=== PATIENT | male | born 2005 | race Caucasian/White ===

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

== ENCOUNTER 2024-10-02 17:55 | Emergency (ER) | payer OTHER, SELFPAY ==
[2024-10-02] VITALS (16 sets, daily range): BP systolic 110–139; BP diastolic 54–83; PULSE 88–152; RESP 18–34; TEMP 37.4–38.5; O2SAT 93–99; BMI 26.8
--- OUTSIDE RECORDS SUMMARY | 2024-10-02 17:57 | XMS_ITS | Clinical Summary ---
Author Organization [facility] Address [address] [place] [id number] Care Team Providers Care Laundry Bag Punch Operator Name Role Phone Unavailable Primary Care Provider Unavailabl e Source Comments Patient records contain information from all sites at [facility]. For routine questions regarding patient records, call [phone] during business hours, M-F 8:00 AM - 5:00 PM Central Time. Record requests for emergency care only can be directed to [phone] at any time.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 Gender Identity Not on file Sexual Orientation Not on file Plan of Treatment Health Maintenance Due Date Last Done Comments HIV Screening 2003 Hearing Screening during Well Child Visit 2003 Hepatitis C Screening 2003 TB Screening during Well Child Visit 2003 1 week Well Child Check-Up 2003 1 month Well Child Check-Up 2003 2 month Well Child Check-Up 2003 4 month Well Child Check-Up 01/03/2004 9 month Well Child Check-Up 06/04/2004 15 month Well Child Check-Up 12/02/2004 18 month Well Child Check-Up 03/04/2005 2 year Well Child Check-Up 09/01/2005 30 month Well Child Check-Up 03/04/2006 3 year Well Child Check-Up 09/01/2006 Well Child Check-Up Completed in Past Year 09/01/2006 5 year Well Child Check-Up 09/01/2008 6 year Well Child Check-Up 09/01/2009 7 year Well Child Check-Up 09/01/2010 8 year Well Child Check-Up 09/02/2011 10 year Well Child Check-Up 09/01/2013 12 year Well Child Check-Up 09/02/2015 13 year Well Child Check-Up 09/01/2016 12 year Well Child Check-Up 09/01/2017 13 year Well Child Check-Up 09/01/2018 HPV Vaccines (1 - Male 3-dose series) 10/02/2018 14 year Well Child Check-Up 09/29/2019 15 year Well Child Check-Up 09/01/2020 16 year Well Child Check-Up 09/01/2021 17 year Well Child Check-Up 09/01/2022 20 year Well Child Check-Up 09/02/2023 COVID-19 Vaccine ( - season) 2023 Influenza Vaccine (#1) 2024 7, 03/01/2007, 04/03/2006, Additional history exists Depression Screening (Annual PHQ-2) 05/01/2024 19 year Well Child Check-Up 09/01/2024 Well Child Check-Up (WCC) 09/01/2024 DTaP,Tdap,and Td Vaccines (7 - Td or Tdap) 03/18/2025 03/18/2015, 10/01/2008, 04/05/2005, Additional history exists Hepatitis B Vaccines Completed 04/08/2004, 04/08/2004, 02/02/2004, Additional history exists Pneumococcal vaccine (0-49 years) Aged Out 04/05/2005, 04/08/2004, 02/02/2004, Additional history exists No longer eligible based on patient's age to complete this topic IPV Vaccines Completed 10/01/2008, 12/2003, 04/08/2004, Additional history exists Meningococcal Vaccine Aged Out 03/18/2015 No thang leilani eligible based on patient's age to complete this topic Insurance
--- OUTSIDE RECORDS SUMMARY | 2024-10-02 17:57 | XMS_ITS | Patient Health Record ---
Author Organization [facility] Address [address] [facility] [address] [place] [address] Care Team Providers Care Didactic Program In Dietetics Director Name Role Phone Simone Purvis MD Primary Care Provider [phone] Destinee MORENO BUSINESS PROCESS ASSOCIATE, JANE Unavailable [phone] Perla HAAS, Concepcion Unavailable [phone] Reason For Referral No Information Problems Problem Type SNOMED Code ICD Code Onset Dates Problem Status W/U Status Risk Notes Problem Constipation (63691083) Constipation (K59.00) Active confirmed Problem Urinary urgency (R39.15) Active confirmed Problem Urinary frequency (583123655) Urinary frequency (R35.0) Active confirmed Plan Of Treatment No Information Insurance Providers Payer Name Payer Address Payer Phone Subscriber Number Group Number Insured Name Patient Relationship to Insured Coverage Start Date Coverage End Date [facility] [address] [address] [place] [address] [id number] Ry Urena Child - Insured has Financial Responsibility Medical (General) History Medical History History ICD Code Born at 38 weeks 9lbs Hematuria Urinary Urgency/Frequency Surgical History Surgery Date(Month/Year) Biopsy of infection on wrist Hospitalization History Reason Date(Month/Year) 5 days [facility] line for antibiotics for inf ection on wrist
--- OUTSIDE RECORDS SUMMARY | 2024-10-02 17:57 | XMS_ITS | Clinical Summary ---
Author Organization [facility] Address [address] [place] [address] Care Team Providers Care Marketing Planner Name Role Phone Mynor Cortez MD Primary Care Provider [phone] Allergies No known active allergies Medications azithromycin (Zithromax Z-Ish) 250 mg tabletIndicatio ns:Pneumonia of right lower lobe due to infectious organism Take 500 mg (2 tabs) by mouth on day 1, then 250 mg (1 tab) daily for days 2-5. 6 Tablet 5 Active cefuroxime axetil 500 mg tabletIndicatio ns:Pneumonia of right lower lobe due to infectious organism Take 1 Tablet (500 mg) by mouth two times daily for 7 days. 14 Tablet 5 10/08/19 25 Active albuterol HFA (ProAir HFA) 90 mcg/actuation inhalerIndicati ons:Pneumonia of right lower lobe due to infectious organism Inhale 1-2 Puffs by mouth every 6 hours if needed for Shortness of Breath 1st choice. 1 Each 5 Active benzonatate 100 mg capsuleIndicati ons:Pneumonia of right lower lobe due to infectious organism Take 1 Capsule (100 mg) by mouth 3 times daily if needed for Cough. 30 Capsule 5 Active clotrimazole-be tamethasone cream (LOTRISONE) 1-0.05 % creamIndication s:Perianal rash Apply topically to affected area(s) two times daily. 45 g 3 10/01/19 25 Discontinu ed(*Patien t states no longer taking) Active Problems Problem Noted Date Diagnosed Date Palpitations 12/03/2021 Use of energy drinks 12/03/2021 Encounters Date Type Department Care Team Description 10/02/2024 Nurse Triage [facility] [address] [facility] [place] [address] Tiny Garcia PA Cough 10/02/2024 Telephone [facility] [address] [facility] [place] [address] Tiny Garcia PA Letter For Work (Doctors note) 09/30/2024 10:15 AM CDT Ancillary Procedure [facility] [address] [place] [address] Arrived 09/30/2024 9:50 AM CDT Office Visit [facility] [address] [place] [address] Tiny Garcia PA Cough 09/30/2024 Travel from Last 3 Months Immunizations Immunization Administration Dates Next Due DTaP 04/05/2005 APoP-FvfI-HMV (Pediarix) 04/08/2004,02/02/2004,0 2003 DTaP-IPV (Kinrix) 10/01/2008 HIB PRP-OMP (PedvaxHIB) 04/05/2005,04/08,02/02/2004,12/10 Hepatitis A (Peds) 03/18/2015,12/05/2013 Influenza A (H1N1), Inactivated 02/26/2009 Influenza, IIV3 (Age 6-35 mos) 04/03/2006,2005 Influenza, IIV3 (Age >=3 years) 03/01/2007,04/03 MENINGOCOCCAL VACCINE 2 VIAL 2MO-55YO (MENVEO) 03/18/2015 MMR 10/01/2008,10/04/2004 Pneumococcal conj 7-Valent (Prevnar 7) 1 06/06/2004,04/08/2004,02/02/2004,12/10 Tdap 03/18/2015 Varicella Vaccine 10/01/2008,10/04/2004 Social History Tobacco Use Types Packs/Day Years Used Date Smoking Tobacco: Never Passive Smoke Exposure: Never Smokeless Tobacco: Never Tobacco Cessation:Counseling Given: Not Answered Comments:Mom states none. Alcohol Use Standard Drinks/Week Comments No 0 (1 standard drink = 0.6 oz pur e alcohol) PHQ-2 Answer Date Recorded PHQ-2 TOTAL SCORE 0 05/13/2022 Social Connections Answer Date Recorded Do you often feel lonely or isolated from those around you? 0 09/30/2024 Financial Resource Strain Answer Date R ecorded Difficulty of Paying Living Expenses 3 09/30/2024 Difficulty of Paying Living Expenses Not on file 09/30/2024 Food Insecurity Answer Date Recorded Do you worry your food will run out before you are able to buy more? 1 09/30/2024 Transportation Needs Answer Date Record ed Does lack of transportation keep you from medica l appointments? 1 09/30/2024 Does lack of transportation keep you from work, meetings or getting things that you need? 1 09/30/2024 Housing Stability Answer Date Recorded What is your housing situation today? 1 09/30/2024 Utilities Answer Date Recorded Do you have trouble paying f or utilities (for example, heat, electricity, water, phone)? 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 Gender Identity Not on file Sexual Orientation Not on file Obstetrics History Last Filed Vital Signs Vital Sign Reading Time Taken Comments Blood Pressure 143/78 09/30/2024 9:47 AM CDT Pulse 107 09/30/2024 9:47 AM CDT Temperature 37.5 C (99.5 F) 09/30/2024 9:47 AM CDT Respiratory Rate - - Oxygen Saturation 95% 09/30/2024 9:47 AM CDT Inhaled Oxygen Concentration - - Weight 83.6 kg (184 lb 6.4 oz) 09/30/2024 9:47 A M CDT Height 172.5 cm (5' 7.91) 05/13/2022 2:24 PM CS T Body Mass Index - - Plan of Treatment Upcoming Encounters Date Type Department Care Team (Late st Contact Info) Description 2024 4:10 PM CDT Office Visit [facility] [address] [place] [address] Tiny Garcia PA [address] [place] [address] Health Maintenance Due Date Last Done Comments HIV for age 15-65 10/02/2018 HPV series for age 9-26 (1 - Male 3-dose series) 10/02/2018 Hepatitis C screening for age 18-79 10/02/2021 BMI (ht and wt on same day) for age 18+ 05/13/2023 05/13/2022 Depression screening for age 12+ 05/13/2023 05/13/2022, 02/08/2017 COVID-19 vaccine series ( season) 2023 Influenza Vaccine (Season Ended) 2024 03/01/2007, 04/03/2006, 04/03/2006, Additional history exists Tetanus booster 03/18/2025 03/18/2015 Hepatitis B series for 19+ Completed 04/08, 02/02/2004, 2003 Pneumococcal series for age 6-49 Aged Out 04/05/2005, 04/08/2004, 02/02/2004, Additional history exists No longer eligible based on patient's age to complete this topic Meningococcal series for age 11-21 Aged Out 03/18/2015 No longer eligible based on patient's age to complete this topic Tdap Completed 03/18/2015 Procedures Procedure Name Priority Date/Time Associated Diagnosis Comments XR CHEST 2 VIEWS PA AND LATERAL STAT 09/30/2024 10:20 AM CDT SOB (shortness of breath) Influenza-like illness from Last 3 Months Results * XR CHEST 2 VIEWS PA AND LATERAL (09/30/2024 10:20 AM CDT) Anatomical Region Laterality Modality CHEST, THORAX, Lung, HEART Compu roselyn Radiography 09/30/2024 11:2 3 AM CDT Narrative 09/30/2024 11:23 AM CDT For Patients: As a result of the Cures Act, medical imaging exams and procedure reports are released immediately into your electronic medical record. You may view this report before your referring provider. If you have questions, please contact your health care provider. Indication: Shortness of breath Technique: Chest 2 views Comparison: None Findings/Impression: Cardiovascular and mediastinum: Heart size and vasculature are normal in caliber and appearance. Mediastinum is within normal limits. Lungs and pleural spaces: No pleural effusion or pneumothorax. Focal airspace consolidation within the right lower lobe consistent with pneumonia. Bones and soft tissues: No significant findings. Dictated by Scot Cunningham MD @ 09/30/2024 11:23:54 AM (Electronically Signed) Procedure Note Scot Cunningham MD - 09/30/2024 For Patients: As a result of the Cures Act, medical imagingexams and procedure reports are released immediately into your electronicmedical record. You may view this report before your referring provider.If you have questions, please contact your health care provider. Indication: Shortness of breath Technique: Chest 2 views Comparison: None Findings/Impression: Cardiovascular and mediastinum: Heart size and vasculature are normal incaliber and appearance. Mediastinum is within normal limits. Lungs and pleural spaces: No pleural effusion or pneumothorax. Focalairspace consolidation within the right lower lobe consistent withpneumonia. Bones and soft tissues: No significant findings. Dictated by Scot Cunningham MD @ 09/30/2024 11:23:54 AM (Electronically Signed) [facility] Final Result from Last 3 Months Insurance [facility] [employer] [facility] Care Teams Marketing Planner Relationship Specialty Start Date End Date Mynor Cortez MD [address] [place] [address] PCP - General Family Practice 11/11/21
[2024-10-02 18:18] LABS: Lactate Sepsis w/Reflex* 1.1 mmol/L (0.5-1.9)
--- NOTE | 2024-10-02 18:19 | CRLHL7_ITS ---
For Patients: As a result of the Century Cures Act, medical imaging exams and procedure reports are released immediately into your electronic medical record. You may view this report before your referring provider. If you have questions, please contact your health care provider. Indication: RECENT PNEUMONIA, NOW SEVERE HEADACHE Technique: CT of the head without contrast. Coronal and sagittal reformats. Bone and soft tissue windows. Comparison: No prior studies available for comparison at this institution. Findings: No acute intracranial hemorrhage or extra-axial collection. No evidence of acute cortical infarction. No mass effect or midline shift. Normal cerebral volume. The ventricles are normal in size, shape and contour. There is normal barnhart and white matter differentiation. The orbital contents are normal. No calvarial fractures. No lytic or sclerotic osseous lesions within the calvarium or skull base. Scalp and other imaged soft tissue structures are normal. Mastoid air cells are clear. Paranasal sinuses are well aerated. Leftward deviation of the nasal septum. Mild polypoid mucosal thickening in the left maxillary sinus. Impression: No acute intracranial abnormality. Please note that all CT scans at this facility use dose modulation, iterative reconstruction, and/or weight-based dosing when appropriate to reduce radiation dose to as low as reasonably achievable. Dictated by Manfred Carrington MD @ 10/02/2024 7:14:54 PM (Electronically Signed)
[2024-10-02] MEDS: ACETAMINOPHEN 500 MG TABLET 1000 MG PO (18:21)
[2024-10-02] MEDS: 0.9 % SODIUM CHLORIDE 1000 ml 1,000 ML IV (18:24)
[2024-10-02 18:30] LABS: Basophils Absolute Auto 0.02 K/uL (0.00-0.30); Basophils Percent Auto 0.2 % (0.0-3.0); Eosinophils Absolute Auto 0.02 K/uL (0.00-0.50); Eosinophils Percent Auto 0.2 % (0.0-7.0); Hematocrit* 45.8 % (37.0-53.0); Hemoglobin* 15.5 gm/dL (13.5-17.5); Immature Granulocytes Abs Auto 0.09 K/uL (0.00-0.30); Immature Granulocytes Pct Auto 0.8 %; Lymphocytes Percent Auto 12.7 % (20-44); Mean Corpuscular HGB Conc 34 gm/dL (32-36); Mean Corpuscular Hemoglobin 27 pg (26-34); Mean Corpuscular Volume 80 fL (80-100); Monocytes Percent Auto 4.5 % (0.0-11.0); Neutrophils Percent Auto 81.6 % (42.0-72.0); Platelet Count* 401 K/uL (140-440); RDW Coefficient of Variation % 11.7 % (11.5-15.5)
[2024-10-02 18:33] LABS: Slide Review Reflex No
[2024-10-02 18:45] LABS: Chloride* 104 mmol/L (96-114); Potassium* 3.9 mmol/L (3.6-5.1); Sodium* 140 mmol/L (135-149)
[2024-10-02 18:47] LABS: Blood Urea Nitrogen* 9 mg/dL (5-24); Creatinine* 0.9 mg/dL (0.5-1.5); Est. Creatinine Clearance* 125.61; Estimated Glomerular Filt Rate 125 ml/min
[2024-10-02 18:48] LABS: Anion Gap 11 mEq/L (7-15); Calcium* 9.4 mg/dL (8.4-10.6); Carbon Dioxide* 25 mmol/L (20-32); Glucose* 114 mg/dL (60-115)
[2024-10-02] MEDS: diphenhydrAMINE 50 MG/ML inj 25 MG IVP (18:54)
[2024-10-02] MEDS: METOCLOPRAMIDE HCL 5 MG/ML INJ 10 MG IVP (18:55)
[2024-10-02] MEDS: KETOROLAC 15 MG/ML inj IVP (18:55)
--- NOTE | 2024-10-02 19:13 | ED_ITS ---
HPI - Headache General Date Seen: 10/02/24 Chief Complaint: Headache/Migraine Stated Complaint: headache Time Seen by Provider: 10/02/24 17:58 Source: patient Mode of arrival: ambulatory Limitations: no limitations History of Present Illness HPI Narrative: Patient is a 19-year-old male presenting to the emergency department for headache. Use diagnosed with pneumonia 2 days ago and has been taking antibiotics for it since then. Today he states he woke up with a severe headache. States the headache did not directly wake him up from sleep but he noticed it when he woke up. He feels like the headache is getting worse. Tried some Advil at home without any improvement in his symptoms. States movement seems to make his headache worse and also admits to photophobia and phonophobia. Denies any history of migraines. Denies ever having headaches like this before. States it is the worst headache of his life. Denies weakness, numbness, chest pain, shortness of breath, abdominal pain, diarrhea, constipation, nausea. States any movement seems to make his headache worse. Has been having fevers at home. 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 No children. Living with his parents. Just graduated high school thinking about going to [employer] school. No alcohol tobacco or recreational drug use. What is your current living situation?: I presently have a place to live Problems where you live: no known problems In the past 12 months, utilities in danger of being shut off: no In past 12 months, lack of transportation kept you from medical appts, meetings, work, or getting things needed for daily living: no In the past 12 mos, have been you worried that your food would run out before you had money to buy more?: never true In the past 12 mos, the food you bought just didn't last and you didn't have money to buy more?: never true Smoking Status: Never smoker Do you use any of these nicotine containing products: None Second hand tobacco smoke exposure: No How often do you have a drink containing alcohol: never How often do you have six or more drinks on one occasion: Never AUDIT-C Alcohol total score: 0 Non-prescribed substance use: denies use How often does anyone, including family, friends and others, physically hurt you : never How often does anyone, including family, friends and others, insult or talk down to you: never How often does anyone, including family, friends and others, threaten you with harm: never How often does anyone, including family, friends and others, scream or curse at you: never service: No Exam Narrative: Exam Narrative: Const: Well-nourished, Well-developed, in moderate distress Eyes: PERRL, no conjunctival injection, and symmetrical lids HENT: Atraumatic external nose and ears. Moist mucous membranes. Neck: Symmetric, trachea midline, No thyromegaly. CVS: Tachycardic, No murmurs or gallops. Peripheral pulses 2+ and equal in all extremities RESP: Tachypneic. Clear to auscultation bilaterally. GI: Nontender/Nondistended, No rebound or guarding. MSK:Extremities w/o deformity, Normal Active ROM Skin: Warm, Dry. No rashes or lesions. Neuro: Normal Muscle tone, Cranial nerves 2-12 grossly intact, normal [id number], normal [id number], normal gait, normal strength 5/5 upper lower extremities bilaterally, normal sensation upper and lower extremities bilaterally, normal rapid alternating movements. Negative Brudzinski's sign but positive Kernig sign Psych: Awake, Alert, & Oriented x3. Appropriate mood and affect. Const: Vital Signs, click to edit/add: Vital Signs - 24 hr 10/02/24 17:58 10/02/24 18:32 10/02/24 18:33 Temperature 101.3 F H Pulse Rate 138 H 137 H Pulse Rate [Pulse Oximeter] 152 H Respiratory Rate 24 26 H 21 Blood Pressure 139/63 Blood Pressure [Ri ght Upper Arm] 110/60 Pulse Oximetry 96 99 98 Oxygen Delivery Me thod Room Air 10/02/24 18:53 10/02/24 19:00 10/02/24 19:02 Temperature Pulse Rate 126 H 125 H Pulse Rate [Pulse Oximeter] Respiratory Rate 29 H 34 H 33 H Blood Pressure 133/54 L Blood Pressure [Ri ght Upper Arm] Pulse Oximetry 95 96 Oxygen Delivery Me thod 10/02/24 19:03 10/02/24 19:15 10/02/24 19:29 Temperature 100.3 F H Pulse Rate 124 H 110 H Pulse Rate [Pulse Oximeter] Respiratory Rate 32 H 34 H Blood Pressure Blood Pressure [Ri ght Upper Arm] Pulse Oximetry 96 96 Oxygen Delivery Me thod 10/02/24 19:29 10/02/24 20:09 10/02/24 20:15 Temperature 100.3 F H Pulse Rate 121 H 121 H Pulse Rate [Pulse Oximeter] Respiratory Rate Blood Pressure Blood Pressure [Ri ght Upper Arm] Pulse Oximetry 97 95 Oxygen Delivery Me thod 10/02/24 21:09 Temperature 99.3 F Pulse Rate Pulse Rate [Pulse Oximeter] 103 H Respiratory Rate 20 Blood Pressure Blood Pressure [Ri ght Upper Arm] 121/75 Pulse Oximetry 95 Oxygen Delivery Me thod Room Air Course Vital Signs Vital signs: Initial Vital Signs Temperature 101.3 F H 10/02/24 17:58 Temperature Source Temporal Artery Scan 10/02/24 17:58 Pulse Rate 152 H 10/02/24 17:58 Respiratory Rate 24 10/02/24 17:58 Blood Pressure 110/60 10/02/24 17:58 Blood Pressure Mean 76 10/02/24 17:58 Blood Pressure Position Sitting 10/02/24 17:58 Pulse Oximetry 96 10/02/24 17:58 Oxygen Delivery Method Room Air 10/02/24 17:58 Vital Signs Temperature 101.3 F H 10/02/24 17:58 Pulse Rate 152 H 10/02/24 17:58 Respiratory Rate 24 10/02/24 17:58 Blood Pressure 110/60 10/02/24 17:58 Pulse Oximetry 96 10/02/24 17:58 Oxygen Delivery Method Room Air 10/02/24 17:58 Temperature 99.3 F 10/02/24 21:09 Pulse Rate 103 H 10/02/24 21:09 Respiratory Rate 20 10/02/24 21:09 Blood Pressure 121/75 10/02/24 21:09 Pulse Oximetry 95 10/02/24 21:09 Oxygen Delivery Method Room Air 10/02/24 21:09 Medications Administered Medications: Generic Name Dose Route Start Last Admin Trade Name Freq PRN Reason Stop Dose Admin Dexamethasone 10 mg 10/02/24 21:03 10/02/24 21:25 Dexamethasone 10 Mg/Ml Pf IVP 10/02/24 21:04 10 mg ONCE ONE Administration Ceftriaxone Sodium 2 gm/ 100 mls @ 200 mls/hr 10/02/24 21:02 10/02/24 21:25 Sodium Chloride IVPB 10/02/24 21:03 200 mls/hr ONCE ONE Administration Discontinued Medications Generic Name Dose Route Start Last Admin Trade Name Angusq PRN Reason Stop Dose Admin Acetaminophen 1,000 mg 10/02/24 18:20 10/02/24 18:21 Acetaminophen 500 Mg Tablet PO 10/02/24 18:21 1,000 mg ONCE ONE Administration Diphenhydramine HCl 25 mg 10/02/24 18:19 10/02/24 18:54 Diphenhydramine 50 Mg/Ml Inj IVP 10/02/24 18:20 25 mg ONCE ONE Administration Sodium Chloride 1,000 mls @ 1,000 mls/hr 10/02/24 18:30 10/02/24 19:29 0.9 % Sodium Chloride 1000 Ml IV 10/02/24 19:29 Infused .Q1H JASMINE Infusion Ketorolac Tromethamine 15 mg 10/02/24 18:19 10/02/24 18:55 Ketorolac 15 Mg/Ml Inj IVP 10/02/24 18:20 15 mg ONCE ONE Administration Metoclopramide HCl 10 mg 10/02/24 18:19 10/02/24 18:55 Metoclopramide Hcl 5 Mg/Ml Inj IVP 10/02/24 18:20 10 mg ONCE ONE Administration MDM - Headache MDM Narrative Medical decision making narrative: Patient is a 19-year-old male presenting for headache. I am highly suspicious of meningitis at this time. I informed the patient and his family had a.m. concerned about meningitis and believe he needs a lumbar puncture. They would like to try the migraine cocktail and CT scan 1st to see if it shows any abnormalities prior to doing lumbar puncture. Also give the patient some Tylenol for his fever. He overall does look ill and pneumonia can increase his chances of meningitis. I will also order septic workup. Lab work returned showing no acute concerning abnormalities. CT scan returned showing no concerning abnormalities. His headache seems to have improved with the medication and Kernig sign is now negative although he still does seem to have at headache with acute movements. He still tachycardic. Considering everything I do still think it is beneficial to do a lumbar puncture to rule out meningitis. My concern for subarachnoid hemorrhage is low because despite this severe headache the headache did not wake him up from sleep and he woke up with it. Although the lumbar puncture will also help rule this out. Lumbar puncture was performed by Anesthesia. States after this was done I did give him dexamethasone, Rocephin, vancomycin for possible meningitis. Even if the lab work comes back negative for meningitis this was still help his known pneumonia with the antibiotics and headache with the steroid. I did consider possible cavernous sinus thrombosis. Although he is not having any visual issues and has normal extraocular movements. Has not had any recent sinus or orbital infections. I also considered cavernous venous thrombosis. He is not having any neurological abnormalities. Is also again not having any local infections far as we can see. Has no history of clotting disorders. Both of these do seem less likely and I spoke to him in his mother about doing a CT venography as we do not have MRI available at this time. Considering everything they declined the CT at this time and again he is stating he is feeling better. Patient's CSF is consistent with a viral meningitis. Patient is feeling much better at this time and his vital signs have improved significantly. His pulses are down to 103 and he no longer has a fever. I spoke to him his mother will discharge with 24 hour follow-up versus admission with empiric antibiotics until culture results return. Patient states he has been much with this time and will prefer to be discharged. This is reasonable he will be discharged Lab Data Labs: Lab Results 10/02/24 10/02/24 10/02/24 Range/Units 18:10 18:14 18:19 WBC 10.90 (4.50-11.00) K/uL RBC 5.70 (4.30-5.90) m/uL Hgb 15.5 (13.5-17.5) gm/dL Hct 45.8 (37.0-53.0) % MCV 80 (80-100) fL MCH 27 (26-34) pg MCHC 34 (32-36) gm/dL RDW Coeff of Magrie 11.7 (11.5-15.5) % Plt Count 401 (140-440) K/uL Neut % (Auto) 81.6 H (42.0-72.0) % Lymph % (Auto) 12.7 L (20-44) % [place] % (Auto) 4.5 (0.0-11.0) % Eos % (Auto) 0.2 (0.0-7.0) % Baso % (Auto) 0.2 (0.0-3.0) % Neut # (Auto) 8.90 H (1.7-7.0) K/uL Lymph # (Auto) 1.40 (0.90-2.90) K/uL [place] # (Auto) 0.50 (0.00-0.90) K/UL Eos # (Auto) 0.02 (0.00-0.50) K/uL Baso # (Auto) 0.02 (0.00-0.30) K/uL Abs Immat Gran (auto) 0.09 (0.00-0.30) K/uL Imm/Tot Granulo (auto) 0.8 % Sodium 140 (135-149) mmol/L Potassium 3.9 (3.6-5.1) mmol/L Chloride 104 (96-114) mmol/L Carbon Dioxide 25 (20-32) mmol/L Anion Gap 11 (7-15) mEq/L BUN 9 (5-24) mg/dL Creatinine 0.9 (0.5-1.5) mg/dL Estimated Creat Clear 125.61 Estimated GFR 125 ml/min Glucose 114 (60-115) mg/dL Lactate 1.1 (0.5-1.9) mmol/L Calcium 9.4 (8.4-10.6) mg/dL CSF Volume (0-6) mL CSF Appearance (Clear) CSF Color (Colorless) CSF WBC Cells/uL CSF RBC Cells/uL CSF Mononuclear Cells % CSF Polynuclear WBCs % CSF Glucose (40-70) mg/dL CSF Total Protein (15-45) mg/dL SARS-CoV-2 (PCR) Negative SARS-CoV-2 (Negative) Influenza Type A (PCR) Negative PCR FLU A (Negative) Influenza Type B (PCR) Negative PCR FLU B (Negative) RSV (PCR) Negative PCR RSV (Negative) 10/02/24 Range/Units 20:40 WBC (4.50-11.00) K/uL RBC (4.30-5.90) m/uL Hgb (13.5-17.5) gm/dL Hct (37.0-53.0) % MCV (80-100) fL MCH (26-34) pg MCHC (32-36) gm/dL RDW Coeff of Margie (11.5-15.5) % Plt Count (140-440) K/uL Neut % (Auto) (42.0-72.0) % Lymph % (Auto) (20-44) % [place] % (Auto) (0.0-11.0) % Eos % (Auto) (0.0-7.0) % Baso % (Auto) (0.0-3.0) % Neut # (Auto) (1.7-7.0) K/uL Lymph # (Auto) (0.90-2.90) K/uL [place] # (Auto) (0.00-0.90) K/UL Eos # (Auto) (0.00-0.50) K/uL Baso # (Auto) (0.00-0.30) K/uL Abs Immat Gran (auto) (0.00-0.30) K/uL Imm/Tot Granulo (auto) % Sodium (135-149) mmol/L Potassium (3.6-5.1) mmol/L Chloride (96-114) mmol/L Carbon Dioxide (20-32) mmol/L Anion Gap (7-15) mEq/L BUN (5-24) mg/dL Creatinine (0.5-1.5) mg/dL Estimated Creat Clear Estimated GFR ml/min Glucose (60-115) mg/dL Lactate (0.5-1.9) mmol/L Calcium (8.4-10.6) mg/dL CSF Volume 8.0 H (0-6) mL CSF Appearance Clear (Clear) CSF Color Colorless (Colorless) CSF WBC 223 Cells/uL CSF RBC < 1000 Cells/uL CSF Mononuclear Cells 25 % CSF Polynuclear WBCs 75 % CSF Glucose 55 (40-70) mg/dL CSF Total Protein 78 H (15-45) mg/dL SARS-CoV-2 (PCR) (Negative) Influenza Type A (PCR) (Negative) Influenza Type B (PCR) (Negative) RSV (PCR) (Negative) Imaging Data CT scan head: Attestation: I have reviewed the pertinent imaging results. Radiologist's impression: No acute intracranial abnormality. Please note that all CT scans at this facility use dose modulation, iterative reconstruction, and/or weight-based dosing when appropriate to reduce radiation dose to as low as reasonably achievable. Dictated by Manfred Carrington MD @ 10/02/2024 7:14:54 PM Discharge Plan Discharge Clinical Impression: Meningitis, viral Patient Disposition: Home, Self-Care Condition: Improved Instructions: Viral Meningitis (ED) Additional Instructions: You do appear to have a viral meningitis. The viruses that can cause this m eningitis are the same as the 1 that are likely causing your pneumonia and can be contagious. I do recommend still continuing your antibiotics. Make sure to be careful and to cover any coughs or sneezes. Is important you have 24 hour follow-up. Call your primary care provider in the morning to tried to set up an appointment. If you develop seizures, focal neurological issues, severely decreased arousability or any other concerning findings return for re- evaluation. Take Tylenol and ibuprofen for pain. If the cultures come back positive for bacteria or for HSV we will call you and let you know. Prescriptions: No Action azithromycin 250 mg tablet PO benzonatate 100 mg capsule 100 mg PO 3XD PRN (Reason: cough) cefuroxime axetil 500 mg tablet 500 mg PO BID Follow Up/Referrals: Mynor Cortez MD [Primary Care Provider, Family Practice] Stand Alone Forms: [facility] Info Instructions
[2024-10-02 19:14] LABS: PCR FLU A Negative PCR FLU A (Negative); PCR FLU B Negative PCR FLU B (Negative); PCR RSV Negative PCR RSV (Negative); SARS PCR* Negative SARS-CoV-2 (Negative)
--- NOTE | 2024-10-02 20:44 | PM.PRCPDLP ---
Lumbar Puncture Procedure Performed by:: RAYRAY Time Seen by Provider: 20:30 Date Seen: 10/02/24 Date of procedure: 10/02/24 Pre-op diagnosis: ?menigitis Post-op diagnosis: same Consent signed by: Patient Position: sitting Prep: chlorhexidine Anesthesia: 1 % Lidocaine Sedation: none Needle size: other (25g) Needle length: 3.5 Interspace: L4-5 Number of attempts: 1 Opening pressure: not done Fluids mLs collected: 4.5 Fluid description: clear Complications: No Procedure performed by: Fausto Clark Condition: stable
--- NOTE | 2024-10-02 20:46 | P.ANES_ITS ---
Anesthesia Charges Start Date/Time Anesthesia Start Date: 10/02/24 Anesthesia Start Time: 20:20 Stop Date/Time Anesthesia Stop Date: 10/02/24 Anesthesia Stop Time: 20:40 Coding CPT Codes CPT Codes: ANESTH LUMBAR PUNCTURE - 72243 ([id number]) P1 - NORMAL HEALTHY PATIENT, QZ - CLAY DIGGER SVC W/O SET UP / OPERATOR BY
--- NOTE | 2024-10-02 20:46 | W.ANESCHARGE ---
Anesthesia Charges Start Date/Time Anesthesia Start Date: 10/02/24 Anesthesia Start Time: 20:20 Stop Date/Time Anesthesia Stop Date: 10/02/24 Anesthesia Stop Time: 20:40 Coding CPT Codes CPT Codes: ANESTH LUMBAR PUNCTURE - 31275 ([id number]) P1 - NORMAL HEALTHY PATIENT, QZ - COLOR ARTIST SVC W/O CLAM SORTER BY
[2024-10-02 21:23] LABS: CSF Mononuclear Cells 25 %; CSF Polynuclear Cells 75 %; WBC, CSF 223 Cells/uL
[2024-10-02 21:24] LABS: RBC, CSF < 1000 Cells/uL
[2024-10-02 21:25] LABS: Glucose, CSF* 55 mg/dL (40-70); Total Protein, CSF 78 mg/dL (15-45)
[2024-10-02] MEDS: DEXAMETHASONE 10 MG/ML PF IVP (21:25)
[2024-10-02] MEDS: cefTRIAXone 2 GM in 0.9 % SODIUM CHLORIDE Mini-bag 100 ML IVPB (21:25)
[2024-10-02 21:27] LABS: Appearance CSF Clear (Clear); Color CSF Colorless (Colorless)
[2024-10-02] MEDS: VANCOMYCIN 1.5 GM/300 ML 1.5 GM/300 ML PIGGYBACK IVPB (22:02)
[2024-10-05 06:34] LABS: HSV 1 Subtype by PCR Not Detected; HSV 2 Subtype by PCR Not Detected; Herpes Simplex Subtype Source CSF
== END 2024-10-02 23:27 | disposition home or self-care (01) ==
PROVIDERS: Emergency Provider Student in an Organized Health Care Education/Training Program; PCP Family Medicine
DX: R51.9 Headache, unspecified (principal); A87.9 Viral meningitis, unspecified
CPT/HCPCS: 00635; 36415; 62270; 70450; 71046; 80048; 80076; 82945; 83605; 84157; 85025; 86140; 86308; 87040; 87070; 87186; 87205; 87252; 87529; 87637; 89051; 94761; 96365; 96366; 96375; 99284; 99285; A9270; J0692; J0696; J1100; J1200; J1885; J2405; J2765; J3372; J7030

== ENCOUNTER 2024-10-05 07:50 | Emergency (ER) | payer OTHER, SELFPAY ==
[2024-10-05] VITALS (10 sets, daily range): BP systolic 91–125; BP diastolic 54–78; PULSE 70–120; RESP 12–20; TEMP 36.5; O2SAT 94–98; BMI 26.5
--- OUTSIDE RECORDS SUMMARY | 2024-10-05 07:52 | XMS_ITS | Patient Health Record ---
Author Organization [facility] Address [address] [facility] [address] [place] [address] Care Team Providers Care Neonatal Doctor Name Role Phone Simone Purvis MD Primary Care Provider Destinee MORENO METAL STORAGE WORKER, JANE Unavailable [phone] Perla HAAS, Concepcion Unavailable [phone] Reason For Referral No Information Problems Problem Type SNOMED Code ICD Code Onset Dates Problem Status W/U Status Risk Notes Problem Constipation (K59.00) Active confirmed Problem Urgent desire to urinate (55405193) Urinary urgency (R39.15) Active confirmed Problem Urinary frequency (018399637) Urinary frequency (R35.0) Active confirmed Plan Of Treatment No Information Insurance Providers Payer Name Payer Address Payer Phone Subscriber Number Group Number Insured Name Patient Relationship to Insured Coverage Start Date Coverage End Date [facility] [address] [address] [place] [address] [id number] Ry Urena Child - Insured has Financial Responsibility Medical (General) History Medical History History ICD Code Born at 38 weeks 9lbs Hematuria Urinary Urgency/Frequency Surgical History Surgery Date(Month/Year) Biopsy of infection on wrist Hospitalization History Reason Date(Month/Year) 5 days [facility] line for antibiotics for inf ection on wrist
--- OUTSIDE RECORDS SUMMARY | 2024-10-05 07:52 | XMS_ITS | Clinical Summary ---
Author Organization [facility] Address [address] [place] [id number] Care Team Providers Care Hospice Community Liaison Name Role Phone Unavailable Primary Care Provider Unavailabl e Source Comments Patient records contain information from all sites at [facility]. For routine questions regarding patient records, call [phone] during business hours, M-F 8:00 AM - 5:00 PM Central Time. 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
--- OUTSIDE RECORDS SUMMARY | 2024-10-05 07:52 | XMS_ITS | Clinical Summary ---
Author Organization [facility] Address [address] [place] [address] Care Team Providers Care Gang Vibrator Operator Name Role Phone Mynor Cortez MD Primary Care Provider [phone] Allergies No known active allergies Medications azithromycin [...] Encounters Date Type Department Care Team Description 10/04/2024 Refill [facility] [address] [place] [address] Magalys Ogden MD Refill Request (clotrimazole-betame thasone cream (LOTRISONE) 1-0.05 % cream (Discontinued)/) 2024 4:10 PM CDT Office Visit [facility] [address] [place] [address] Tiny Garcia PA Follow Up (meningitis) 2024 Travel 10/02/2024 Nurse Triage [facility] [address] [place] [address] Tiny Garcia PA Cough 10/02/[address] [address] Tiny Garcia PA Letter For Work (Doctors note) 09/30/2024 10:15 AM CDT Ancillary Procedure [facility] [address] [place] [address] Arrived 09/30/2024 9:50 AM CDT Office Visit [facility] [address] [place] [address] Tiny Garcia PA Cough 09/30/2024 Travel from Last 3 Months Immunizations Immunization Administration Dates Next Due DTaP 04/05/2005 [id number] (Pediarix) 04/08/2004,02/02/2004,0 2003 DTaP-IPV (Kinrix) 10/01/2008 HIB [...] on file 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 Gender Identity Not on file Sexual Orientation Not on file Obstetrics History Last Filed Vital Signs Vital Sign Reading Time Taken Comments Blood Pressure 123/78 2024 3:03 PM CDT Pulse 107 2024 3:03 PM CDT Temperature 36.8 C (98.3 F) 2024 3:03 PM CDT Respiratory Rate - - Oxygen Saturation 96% 2024 3:03 PM CDT Inhaled Oxygen Concentration - - Weight 83.6 kg (184 lb 6.4 oz) 09/30/2024 9:47 A M CDT Height 172.5 cm (5' 7.91) 05/13/2022 2:24 PM CS T Body Mass Index - - Plan of Treatment Health Maintenance Due Date [...] For Patients: As a result of the Century Cures Act, medical imaging exams and procedure [...] Final Result from Last 3 Mon[place] [id number] [facility] Care Teams Gang Vibrator Operator Relationship Specialty Start Date End Date Mynor Cortez MD [address] [place] [phone] PCP - General Family Practice 11/11/21
--- NOTE | 2024-10-05 08:22 | CRLHL7_ITS ---
For Patients: As a result of the Cures Act, medical imaging exams and procedure reports are released immediately into your electronic medical record. You may view this report before your referring provider. If you have questions, please contact your health care provider. INDICATION: Fever. Recent pneumonia. TECHNIQUE: Chest 2 views. COMPARISON: None available FINDINGS: No pneumothorax or pleural effusion. Subtle ill-defined medial right basilar opacity. Cardiac and mediastinal contours are within normal limits. Upper abdomen and osseous structures as imaged show no acute abnormality. IMPRESSION: Subtle right basilar opacity, concerning for residual or recurrent pneumonia. Dictated by Patricio Pedraza MD @ 10/05/2024 9:09:21 AM (Electronically Signed)
[2024-10-05] MEDS: 0.9 % SODIUM CHLORIDE 1000 ml 1,000 ML IV ×2 (08:30→10:20)
[2024-10-05] MEDS: ONDANSETRON 2 MG/ML inj 4 MG IVP (08:30)
[2024-10-05 08:32] LABS: Lactate* 1.4 mmol/L (0.5-1.9)
[2024-10-05 08:35] LABS: Basophils Percent Auto 0.2 % (0.0-3.0); Eosinophils Percent Auto 0.2 % (0.0-7.0); Hematocrit 44.9 % (37.0-53.0); Hemoglobin* 15.2 gm/dL (13.5-17.5); Immature Granulocytes Pct Auto 0.9 %; Lymphocytes Percent Auto 16.8 % (20-44); Mean Corpuscular HGB Conc 34 gm/dL (32-36); Mean Corpuscular Hemoglobin 28 pg (26-34); Mean Corpuscular Volume 83 fL (80-100); Monocytes Percent Auto 5.9 % (0.0-11.0); Platelet Count* 472 K/uL (140-440); RDW Coefficient of Variation % 12.2 % (11.5-15.5); Red Blood Count 5.44 m/uL (4.30-5.90); White Blood Count* 11.56 K/uL (4.50-11.00)
[2024-10-05 08:36] LABS: Slide Review Reflex No
[2024-10-05 08:44] LABS: Mono Screen* Negative (Negative)
[2024-10-05 08:48] LABS: Albumin* 4.4 g/dL (3.3-5.0); Chloride* 108 mmol/L (96-114); Sodium* 144 mmol/L (135-149)
[2024-10-05 08:50] LABS: Blood Urea Nitrogen* 14 mg/dL (5-24); Creatinine* 0.8 mg/dL (0.5-1.5); Est. Creatinine Clearance* 141.31; Estimated Glomerular Filt Rate 129 ml/min
[2024-10-05 08:51] LABS: Alanine Aminotransferase* 33 U/L (4-50); Alkaline Phosphatase* 117 U/L (40-150); Anion Gap 12 mEq/L (7-15); Aspartate Amino Transferase* 27 U/L (12-35); Bilirubin Total* 0.9 mg/dL (0.1-1.5); Calcium* 9.7 mg/dL (8.4-10.6); Carbon Dioxide* 24 mmol/L (20-32); Glucose* 108 mg/dL (60-115)
[2024-10-05 08:54] LABS: C Reactive Protein* 0.5 mg/dL (0.5-1.0)
--- NOTE | 2024-10-05 09:04 | ED.GENADULT ---
HPI - General Adult General Chief complaint: Nausea/Vomiting Stated complaint: vomiting Time Seen by Provider: 10/05/24 08:02 Source: patient Mode of arrival: ambulatory Limitations: no limitations History of Present Illness HPI narrative: 19-year-old male presenting today with vomiting. Three days ago patient was diagnosed with viral meningitis. He continues to have a headache. He is on antibiotics and Tylenol ibuprofen around the clock. Unsure of his last fever. He has felt extremely nauseated this entire time. He has eaten very little to nothing on a daily basis. He does drink water and takes his medications. However today he could anything keep down his water and his medications. He takes cefuroxime. Two days prior to his diagnosis of viral meningitis he was diagnosed with pneumonia and placed on antibiotics. He states that last night and today he has noticed blurry vision. No abdominal pain or chest pain. He is not short of breath. He states that the headache is significant with any movement, so he has been lying in bed for the last 3 days. 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 No children. Living with his parents. Just graduated high school thinking about going to flight school. No alcohol tobacco or recreational drug use. What is your current living situation?: I presently have a place to live Problems where you live: no known problems In the past 12 months, utilities in danger of being shut off: no In past 12 months, lack of transportation kept you from medical appts, meetings, work, or getting things needed for daily living: no In the past 12 mos, have been you worried that your food would run out before you had money to buy more?: never true In the past 12 mos, the food you bought just didn't last and you didn't have money to buy more?: never true Smoking Status: Never smoker Do you use any of these nicotine containing products: None Second hand tobacco smoke exposure: No How often do you have a drink containing alcohol: never How often do you have six or more drinks on one occasion: Never AUDIT-C Alcohol total score: 0 Non-prescribed substance use: denies use How often does anyone, including family, friends and others, physically hurt you: never How often does anyone, including family, friends and others, insult or talk down to you: never How often does anyone, including family, friends and others, threaten you with harm: never How often does anyone, including family, friends and others, scream or curse at you: never service: No Exam Narrative: Exam Narrative: Well-nourished well-developed patient, appears uncomfortable. Alert and oriented x3. Answers questions appropriately. Mood and affect are appropriate. Thoughts are goal oriented and rational. No tangential or magical thinking noted. Patient speaks in full sentences without needing to catch his breath. HEENT: Normocephalic atraumatic. Pupils are equally round reactive to light. Extraocular muscles are intact. Conjunctivae are moist without any icterus noted. Moist mucous membranes. Posterior pharynx is normal. Cardiovascular: Heart is regular rate and rhythm S1 and S2 are present without any murmurs. Lungs: Clear to auscultation bilaterally no wheezes rhonchi or rales are appreciated. Patient takes deep breaths without any discomfort. Abdomen: Soft and nontender nondistended with normal bowel sounds. Extremities: Bilateral lower extremities are without edema. Skin: Well perfused without any obvious rashes. Strength is 5/5 of the upper and lower extremities. There is no nystagmus either horizontally or vertically. Normal facial symmetry. Hand hotel associate is normal and symmetric. Const: Vital Signs, click to edit/add: Vital Signs - 24 hr 10/05/24 07:57 10/05/24 08:05 10/05/24 08:23 Temperature 97.7 F Pulse Rate 82 Pulse Rate [Pulse Oximeter] 120 H Respiratory Rate 20 Blood Pressure Blood Pressure [Ri ght Upper Arm] 91/54 L Pulse Oximetry 94 94 95 Oxygen Delivery Me thod Room Air Room Air 10/05/24 08:30 10/05/24 08:31 10/05/24 09:01 Temperature Pulse Rate 85 95 85 Pulse Rate [Pulse Oximeter] Respiratory Rate 16 Blood Pressure 104/66 114/69 Blood Pressure [Ri ght Upper Arm] Pulse Oximetry 94 95 96 Oxygen Delivery Me thod Room Air Room Air 10/05/24 09:31 10/05/24 10:01 Temperature Pulse Rate 82 94 Pulse Rate [Pulse Oximeter] Respiratory Rate 12 16 Blood Pressure 109/72 125/78 Blood Pressure [Ri ght Upper Arm] Pulse Oximetry 97 97 Oxygen Delivery Me thod Course Course ED Course: IV established and patient is given Zofran in L of normal saline. Chest x-ray, read by me, shows a residual right-sided opacity. CBC, chemistries, CRP, lactate, LFTs were done today and reviewed. Labs overall unremarkable. CSF culture showing Staphylococcus epidermidis and a small amount of gram-positive rods resembling diphtheroids- likely skin contaminant. HSV negative. Vital Signs Vital signs: Initial Vital Signs Temperature 97.7 F 10/05/24 07:57 Temperature Source Temporal Artery Scan 10/05/24 07:57 Pulse Rate 120 H 10/05/24 07:57 Respiratory Rate 20 10/05/24 07:57 Blood Pressure 91/54 L 10/05/24 07:57 Blood Pressure Mean 66 L 10/05/24 07:57 Pulse Oximetry 94 10/05/24 07:57 Oxygen Delivery Method Room Air 10/05/24 07:57 Vital Signs Temperature 97.7 F 10/05/24 07:57 Pulse Rate 120 H 10/05/24 07:57 Respiratory Rate 20 10/05/24 07:57 Blood Pressure 91/54 L 10/05/24 07:57 Pulse Oximetry 94 10/05/24 07:57 Oxygen Delivery Method Room Air 10/05/24 07:57 Temperature 97.7 F 10/05/24 07:57 Pulse Rate 94 10/05/24 10:01 Respiratory Rate 16 10/05/24 10:01 Blood Pressure 125/78 10/05/24 10:01 Pulse Oximetry 97 10/05/24 10:01 Oxygen Delivery Method Room Air 10/05/24 08:31 Medications Administered Medications: Generic Name Dose Route Start Last Admin Trade Name Perico PRN Reason Stop Dose Admin Vancomycin/PEG/NADA/Lysine/Water 1.75 gm in 350 mls @ 200 mls/hr 10/05/24 09:50 10/05/24 10:55 Vancomycin 1.75 Gm/350 Ml IVPB 10/05/24 11:34 200 mls/hr ONCE ONE Administration Protocol Discontinued Medications Generic Name Dose Route Start Last Admin Trade Name Perico PRN Reason Stop Dose Admin Dexamethasone 10 mg 10/05/24 09:50 10/05/24 10:18 Dexamethasone 4 Mg/Ml Vial IVP 10/05/24 09:51 10 mg ONCE ONE Administration Sodium Chloride 1,000 mls @ 1,000 mls/hr 10/05/24 08:30 10/05/24 10:24 0.9 % Sodium Chloride 1000 Ml IV 10/05/24 09:29 Infused .Q1H JASMINE Infusion Sodium Chloride 1,000 mls @ 1,000 mls/hr 10/05/24 09:30 10/05/24 10:20 0.9 % Sodium Chloride 1000 Ml IV 10/05/24 10:29 1,000 mls/hr .Q1H JASMINE Administration Cefepime HCl 2 gm/ Sodium 100 mls @ 200 mls/hr 10/05/24 09:50 10/05/24 10:56 Chloride IVPB 10/05/24 09:51 Infused ONCE ONE Infusion Ondansetron HCl 4 mg 10/05/24 08:20 10/05/24 08:30 Ondansetron 2 Mg/Ml Inj IVP 10/05/24 08:21 4 mg ONCE ONE Administration Medical Decision Making MDM Narrative Medical decision making narrative: 19-year-old male diagnosed with viral meningitis. Patient was on 2 days of antibiotics at the time that his lumbar puncture was done which can potentially complicate the results. He has new neurologic findings today including blurry vision and vomiting that were not present in the last 2 days. This could be normal course of his viral meningitis, however there could be a potential missed bacterial meningitis. I consult with Dr. Fonseca, ER physician at [facility], who recommends vancomycin, cefepime, dexamethasone at this time. Recommends a repeat head CT and transfer for care at a hospital with Neurology and Infectious Disease present. Therefore, patient will be transferred to [facility] at this time via ALS ambulance. Of note he did respond to normal saline bolus-blood pressure increased to 104/66 and pulse decreased to 95. Lab Data Lab results reviewed: Yes I reviewed the patient's lab results Labs: Lab Results 10/05/24 10/05/24 Range/Units 08:20 08:21 WBC 11.56 H (4.50-11.00) K/uL RBC 5.44 (4.30-5.90) m/uL Hgb 15.2 (13.5-17.5) gm/dL Hct 44.9 (37.0-53.0) % MCV 83 (80-100) fL MCH 28 (26-34) pg MCHC 34 (32-36) gm/dL RDW Coeff of Margie 12.2 (11.5-15.5) % Plt Count 472 H (140-440) K/uL Neut % (Auto) 76.0 H (42.0-72.0) % Lymph % (Auto) 16.8 L (20-44) % [place] % (Auto) 5.9 (0.0-11.0) % Eos % (Auto) 0.2 (0.0-7.0) % Baso % (Auto) 0.2 (0.0-3.0) % Neut # (Auto) 8.80 H (1.7-7.0) K/uL Lymph # (Auto) 1.90 (0.90-2.90) K/uL [place] # (Auto) 0.70 (0.00-0.90) K/UL Eos # (Auto) 0.00 (0.00-0.50) K/uL Baso # (Auto) 0.00 (0.00-0.30) K/uL Abs Immat Gran (auto) 0.10 (0.00-0.30) K/uL Imm/Tot Granulo (auto) 0.9 % Sodium 144 (135-149) mmol/L Potassium 4.0 (3.6-5.1) mmol/L Chloride 108 (96-114) mmol/L Carbon Dioxide 24 (20-32) mmol/L Anion Gap 12 (7-15) mEq/L BUN 14 (5-24) mg/dL Creatinine 0.8 (0.5-1.5) mg/dL Estimated Creat Clear 141.31 Estimated GFR 129 ml/min Glucose 108 (60-115) mg/dL Lactate 1.4 (0.5-1.9) mmol/L Calcium 9.7 (8.4-10.6) mg/dL Total Bilirubin 0.9 (0.1-1.5) mg/dL Direct Bilirubin 0.0 (0.0-0.5) mg/dL AST 27 (12-35) U/L ALT 33 (4-50) U/L Alkaline Phosphatase 117 (40-150) U/L C-Reactive Protein 0.5 (0.5-1.0) mg/dL Total Protein 8.0 (6.0-8.3) g/dL Albumin 4.4 (3.3-5.0) g/dL Monoscreen Negative (Negative) Imaging Data Chest x-ray: Attestation: I have reviewed the pertinent imaging results. Radiologist's impression: TECHNIQUE: Chest 2 views. COMPARISON: None available FINDINGS: No pneumothorax or pleural effusion. Subtle ill-defined medial right basilar opacity. Cardiac and mediastinal contours are within normal limits. Upper abdomen and osseous structures as imaged show no acute abnormality. IMPRESSION: Subtle right basilar opacity, concerning for residual or recurrent pneumonia. CT scan - head: Attestation: I have reviewed the pertinent imaging results. Radiologist's impression: TECHNIQUE: Noncontrast CT head. FINDINGS: Normal brain parenchymal morphology. No acute intracranial hemorrhage, acute infarct, focal edema, mass effect, or fracture. No midline shift. Basilar cisterns are patent. No abnormal ventricular dilatation. Normal calvarium and skull base. Visualized paranasal sinuses mastoid air cells are clear. Normal orbits bilaterally. IMPRESSION: No acute intracranial abnormality Discharge Plan Discharge Clinical Impression: Meningitis, viral Patient Disposition: Xfer Other Discharge Location: [facility] Condition: Stable Prescriptions: No Action benzonatate 100 mg capsule 100 mg PO 3XD PRN (Reason: cough) cefuroxime axetil 500 mg tablet 500 mg PO BID Stand Alone Forms: [employer] Info Instructions
--- NOTE | 2024-10-05 09:50 | CRLHL7_ITS ---
For Patients: As a result of the Century Cures Act, medical imaging exams and procedure reports are released immediately into your electronic medical record. You may view this report before your referring provider. If you have questions, please contact your health care provider. INDICATION: Nausea and vomiting. Headaches. COMPARISON: 10/03/2023. TECHNIQUE: Noncontrast CT head. FINDINGS: Normal brain parenchymal morphology. No acute intracranial hemorrhage, acute infarct, focal edema, mass effect, or fracture. No midline shift. Basilar cisterns are patent. No abnormal ventricular dilatation. Normal calvarium and skull base. Visualized paranasal sinuses mastoid air cells are clear. Normal orbits bilaterally. IMPRESSION: No acute intracranial abnormality Please note that all CT scans at this facility use dose modulation, iterative reconstruction, and/or weight-based dosing when appropriate to reduce radiation dose to as low as reasonably achievable. Dictated by Jean Davila MD @ 10/05/2024 10:22:47 AM (Electronically Signed)
[2024-10-05] MEDS: dexAMETHasone 4 MG/ML VIAL 10 MG IVP (10:18)
[2024-10-05] MEDS: CEFEPIME HCL 2 GM in 0.9 % SODIUM CHLORIDE Mini-bag 100 ML IVPB (10:19)
[2024-10-05] MEDS: VANCOMYCIN 1.75 GM/350 ML 1.75 GM/350 ML PIGGYBACK IVPB (10:55)
== END 2024-10-05 11:25 | disposition other institution (70) ==
PROVIDERS: Emergency Provider Family Medicine; PCP Family Medicine
DX: R11.10 Vomiting, unspecified (principal); A87.9 Viral meningitis, unspecified
CPT/HCPCS: 36415; 70450; 71046; 80048; 80076; 83605; 85025; 86140; 86308; 94761; 96365; 96366; 96375; 99284; 99285; J0692; J1100; J2405; J3372; J7030

== ENCOUNTER 2024-10-05 11:07 | Outpatient (CLI) | payer OTHER, SELFPAY | END 2024-10-05 11:08 | disposition home or self-care (01) | LOC: AMB 10-09 09:42 | PROVIDERS: PCP Family Medicine; Visit Provider Family Medicine | DX: A87.9 Viral meningitis, unspecified (principal) | CPT/HCPCS: A0425; A0434 ==

== ENCOUNTER 2024-10-16 13:45 | Outpatient (CLI) | payer OTHER, SELFPAY ==
--- NOTE | 2024-10-16 14:00 | CRLHL7_ITS ---
For Patients: As a result of the Century Cures Act, medical imaging exams and procedure reports are released immediately into your electronic medical record. You may view this report before your referring provider. If you have questions, please contact your health care provider. Indication: SUBACUTE COUGH FOR A COUPLE WEEKS, SOB, PHLEGM Technique: CT Chest WITH 85 CC ISOVUE 370 intravenous contrast Please note that all CT scans at this facility use dose modulation, iterative reconstruction, and/or weight-based dosing when appropriate to reduce radiation dose to as low as reasonably achievable. Comparison: Chest x-ray 10/05/2024 Findings: Focal masslike consolidative densities are present within the right lower lobe measuring 2.7 cm in the infrahilar region, 1.8 cm in the subpleural space at the posterolateral lung base, 3.1 cm in the posterior subpleural right lower lobe and 1.8 cm within the anterior right lower lobe adjacent to the fissure. Bronchial wall thickening noted within the right lower lobe. Cavitary lesions are also present within the right lower lobe measuring 2.9 cm in the posterior medial subpleural space and 2.0 cm within the right lower lobe infrahilar space. Small subpleural density posterior left lower lobe measures 1 cm. Numerous enlarged right hilar lymph nodes are present which measure up to 1.3 cm. Enlarged subcarinal lymph node measures 1.4 cm. No pleural effusion or pulmonary edema. No pneumothorax. Subtle filling defect within a right lower lobe subsegmental artery noted at a bifurcation. Impression: Multifocal masslike densities throughout the right lower lobe including cavitary lesions. Mediastinal and right hilar adenopathy. Concern for pulmonary embolism. Dedicated CTA chest recommended. Please note that all CT scans at this facility use dose modulation, iterative reconstruction, and/or weight-based dosing when appropriate to reduce radiation dose to as low as reasonably achievable. Dictated by Manfred Hill MD @ 10/16/2024 2:44:23 PM (Electronically Signed)
== END 2024-10-16 13:46 | disposition home or self-care (01) ==
LOC: CT 13:46
PROVIDERS: PCP Family Medicine; Visit Provider Internal Medicine
DX: R05.2 Subacute cough (principal); I26.99 Other pulmonary embolism without acute cor pulmonale
CPT/HCPCS: 71260; Q9967

== ENCOUNTER 2024-10-17 11:09 | Outpatient (CLI) | payer OTHER, SELFPAY ==
--- NOTE | 2024-10-17 11:30 | CRLHL7_ITS ---
For Patients: As a result of the Century Cures Act, medical imaging exams and procedure reports are released immediately into your electronic medical record. You may view this report before your referring provider. If you have questions, please contact your health care provider. INDICATION: EVALUATE FOR PE BASED ON CT CHEST SCAN DONE YESTERDAY, SUBACUTE COUGH COMPARISON: CT 10/16/2024 TECHNIQUE: CT volumetric acquisition was performed of the thorax during intravenous infusion of 95 cc Isovue 370 nonionic intravenous contrast. Please note that all CT scans at this facility use dose modulation, iterative reconstruction, and/or weight-based dosing when appropriate to reduce radiation dose to as low as reasonably achievable. FINDINGS: Curvilinear pulmonary embolism is present within a subsegmental branch of the right lower lobe, anterior segment. No evidence of right heart strain. No pericardial effusion. No left-sided PE. Subcarinal and right hilar adenopathy again noted. Multifocal masslike parenchymal opacities are present throughout the right lower lobe, some with cavitation, not significantly changed. These are consistent with areas of infection, not infarct. No pulmonary edema or pneumothorax. IMPRESSION: A small pulmonary embolism within a subsegmental branch of the right lower lobe. No pulmonary infarcts. Multifocal infiltrates, some with cavitation, throughout the right lower lobe with associated right hilar and subcarinal adenopathy. Please note that all CT scans at this facility use dose modulation, iterative reconstruction, and/or weight-based dosing when appropriate to reduce radiation dose to as low as reasonably achievable. Dictated by Manfred Hill MD @ 10/17/2024 1:26:28 PM (Electronically Signed)
--- OUTSIDE RECORDS SUMMARY | 2024-10-18 00:35 | XMS_ITS | Clinical Summary ---
Author Organization [facility] Address [address] [place] [address] Care Team Providers Care Rn Discharge Name Role Phone Mynor Cortez MD Primary Care Provider [phone] Allergies No known active allergies Medications azithromycin (Zithromax Z-Ish) 250 mg tabletIndicati ons:Pneumonia of right lower lobe due to infectious organism Take 500 mg (2 tabs) by mouth on day 1, then 250 mg (1 tab) daily for days 2-5. 6 Tablet 5 Active Additional Information Patient not taking.Reported on 10/09/2024 albuterol HFA (ProAir HFA) 90 mcg/actuation inhalerIndicat ions:Pneumonia of right lower lobe due to infectious organism Inhale 1-2 Puffs by mouth every 6 hours if needed for Shortness of Breath 1st choice. 1 Each 5 Active benzonatate 100 mg capsuleIndicat ions:Pneumonia of right lower lobe due to infectious organism Take 1 Capsule (100 mg) by mouth 3 times daily if needed for Cough. 30 Capsule 5 Active Additional Information Patient not taking.Reported on 10/09/2024 clotrimazole-b etamethasone cream (LOTRISONE) 1-0.05 % creamIndicatio ns:Perianal rash Apply topically to affected area(s) two times daily. 45 g 3 025 Discontinu ed(*Patien t states no longer taking) cefuroxime axetil 500 mg tabletIndicati ons:Pneumonia of right lower lobe due to infectious organism Take 1 Tablet (500 mg) by mouth two times daily for 7 days. 14 Tablet 025 Active Problems Problem Noted Date Diagnosed Date Palpitations 12/03/2021 Use of energy drinks 12/03/2021 Encounters Date Type Department Care Team Description 10/09/2024 Telephone [facility] [address] [place] [address] Suma Jasmine MD Cough 10/09/2024 Travel 10/04/[address] [address] Magalys Ogden MD Refill Request (clotrimazole-betam ethasone cream (LOTRISONE) 1-0.05 % cream (Discontinued)/) 2024 4:10 PM CDT Office Visit [address] [address] Tiny Garcia PA Follow Up (meningitis) 2024 Travel 10/02/2024 Nurse Triage [address] [address] Tiny Garcia PA Cough 10/02/[address] [address] Tiny Garcia PA Letter For Work (Doctors note) 09/30/2024 10:15 AM CDT Ancillary Procedure [address] [address] 09/30/2024 9:50 AM CDT Office Visit [address] [address] Tiny Garcia PA Cough 09/30/2024 Travel from Last 3 Months Immunizations Immunization Administration Dates Next Due DTaP 04/05/2005 [id number] (Pediarix) 04/08/2004,02/02/2004,0 2003 DTaP-IPV (Kinrix) 10/01/2008 HIB [...] Never Smokeless Tobacco: Never Tobacco Cessation:Counseling Given: No Comments:Mom states none. 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
--- OUTSIDE RECORDS SUMMARY | 2024-10-18 00:35 | XMS_ITS | Clinical Summary ---
Author Organization [facility] Address [address] [place] [address] Care Team Providers Care Online Advertising Manager Name Role Phone Unavailable Primary Care Provider Unavailabl e Source Comments Patient records contain information from all sites at [facility]. For routine questions regarding patient records, call [phone] during business hours, M-F 8:00 AM - 5:00 PM Central Time. 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
--- OUTSIDE RECORDS SUMMARY | 2024-10-18 00:35 | XMS_ITS | Patient Health Record ---
Author Organization [facility] Address [address] [facility] [address] [place] [address] Care Team Providers Care Decal Applier Name Role Phone Simone Purvis MD Primary Care Provider Destinee MORENO BRAZING FURNACE FEEDER, JANE Unavailable Perla HAAS, Concepcion Unavailable [phone] Reason For Referral No Information Problems Problem Type SNOMED Code ICD Code Onset Dates Problem Status W/U Status Risk Notes Problem Constipation (12887642) Constipation (K59.00) Active confirmed Problem Urgent desire to urinate (37719669) Urinary urgency (R39.15) Active confirmed Problem Urinary frequency (546631422) Urinary frequency (R35.0) Active confirmed Plan Of Treatment No Information Insurance Providers Payer Name Payer Address Payer Phone Subscriber Number Group Number Insured Name Patient Relationship to Insured Coverage Start Date Coverage End Date [facility] [address] [address] [place] [phone] [id number] Ry Urena Child - Insured has Financial Responsibility Medical (General) History Medical History History ICD Code Born at 38 weeks 9lbs Hematuria Urinary Urgency/Frequency Surgical History Surgery Date(Month/Year) Biopsy of infection on wrist Hospitalization History Reason Date(Month/Year) 5 days [facility] line for antibiotics for inf ection on wrist
--- NOTE | 2024-10-18 12:55 | ED.NURSE ---
patient had a Ct yesterday and radiology called to state the patient has a PE. Dr. Jack had taken a phone call about the patient needing to be seen so made an appointment to [facility] at 1500 today. attempting to call patient but drops call and will continue to keep trying.
== END 2024-10-17 11:10 | disposition home or self-care (01) ==
LOC: CT 11:10
PROVIDERS: PCP Family Medicine; Visit Provider Internal Medicine
DX: R05.2 Subacute cough (principal); I26.99 Other pulmonary embolism without acute cor pulmonale
CPT/HCPCS: 71275; Q9967